=== PATIENT | female | born 1960 | race Caucasian/White ===

== ENCOUNTER → 2024-05-31 | Outpatient (CLI) | payer OTHER, SELFPAY ==
--- NOTE | 2024-05-31 10:00 | XR_ITS ---
Examination: Breast ultrasound, unilateral, left complete Date and time of exam: May 31, 2024 1006 hours INDICATIONS: Diagnosis intraductal carcinoma in situ left breast 2019, family history, sister breast cancer Technique: Real-time rizo scale ultrasonographic imaging performed left hip breast including all 4 quadrants as well as nipple retroareolar and axillary region. Findings: No cystic or solid mass IMPRESSION: BI-RADS Category 1: Negative study Recommend diagnostic mammography follow-up
--- NOTE | 2024-05-31 10:30 | XR_ITS ---
Examination: Diagnostic digital mammography, bilateral Computer aided detection 3-D breast Tomosynthesis, bilateral Date and time of exam: May 31, 2024 1014 hrs. Comparison 02/06/2023 Indications: Personal history left breast cancer 2019, family history, sister, breast cancer Technique: Nonmagnified MLO, CC views of the breasts to been obtained, reconstructed from 3-D Tomosynthesis images. R2 computer aided detection program utilized for evaluation of suspicious masses and/or abnormal calcifications. 3-D Tomosynthesis images obtained. Findings: Scattered areas of fibroglandular density. Benign calcifications. Scar formation upper left breast No interval suspicious masses Impression: BI-RADS Category 2: Benign findings Recommend yearly follow-up mammography
== END | disposition home or self-care (01) ==
DX: R92.323 Mammographic fibroglandular density, bilateral breasts (principal); R92.1 Mammographic calcification found on diagnostic imaging of breast; Z80.3 Family history of malignant neoplasm of breast
CPT/HCPCS: 76641; 77062; 77066; G0279

== ENCOUNTER → 2024-11-22 | Outpatient (CLI) | payer OTHER, SELFPAY ==
[2024-11-22 16:46] LABS: B-Type Natriuretic Peptide 20 pg/mL (0-100)
[2024-11-22 19:22] LABS: D-Dimer < 250 ng/mL (<600)
== END | disposition home or self-care (01) ==
PROVIDERS: PCP Nurse Practitioner Family; Referring Provider Nurse Practitioner Family; Visit Provider Nurse Practitioner Family
DX: R07.9 Chest pain, unspecified (principal)
CPT/HCPCS: 36415; 83880; 85379